=== PATIENT | female | born 1985 | race Caucasian/White ===

== ENCOUNTER 2020-12-13 18:23 | Inpatient (IN) ==
[2020-12-13] MEDS ORDERED: levETIRAcetam 1,500 MG in 0.9 % SODIUM CHLORIDE 100 ML IV STA (18:44)
[2020-12-13] MEDS ORDERED: SODIUM CHLORIDE 0.9% 500 ML IV SCH (18:45)
--- NOTE | 2020-12-13 18:54 | Emergency Department Note ---
Impression & Plan Collapse, Seizure-like activity, Acute head trauma, Facial contusion, Methamphetamine abuse ED Provider Note NAME: COOKIE BLACKBURN AGE: 35 SEX: F : 1985 ARRIVES VIA: Ambulance INFORMANT: [Patient][ems] ED PROVIDER(S): [Julian Varela MD] CHIEF COMPLAINT: Seizure HISTORY OF PRESENT ILLNESS: The patient is a 35-year-old female who [facility] She has been there for 2 weeks. She is there for methamphetamine abuse. Patient states that she has a history of stress-induced seizures. She has only ever been on Valium though for her seizures. Patient states her last seizure was in July of last year, about 4 months ago. Today, the patient had 2 seizure-like events. She did fall to the ground and injured her right face and neck. She is in a stiff cervical collar. The pain is moderate in severity. The patient states that she has been having headaches, she states that there has been no chest pain or shortness of breath, no cough or cold or congestion. No abdominal pain or vomiting or urinary complaints. The patient states that she does not remember the seizure events. As per EMS, the patient's seizure stopped when the IV was placed, no antiseizure medications were given in route. The patient BSG was 127. The patient did not bite her tongue, there was no urinary loss. REVIEW OF SYSTEMS: See HPI for pertinent positives and negatives. A total of ten systems were reviewed and were otherwise negative. PMHx/PSHx: See Below SOCIAL HISTORY: See Below. PHYSICAL EXAM: GENERAL: Patient is in no acute distress. HEENT: No acute trauma, normocephalic atraumatic, mucous membranes moist, no nasal congestion, no scleral icterus. NECK: No stridor. Stiff collar in place. LUNGS: Clear to auscultation bilaterally, no wheeze, no rhonchi, breath sounds equal. HEART: Without murmurs gallops or rubs, regular rate and rhythm. ABDOMEN: Soft, nontender, bowel sounds positive, no hernias, no peritonitis. EXTREMITIES: No cyanosis or edema, full range of motion of all the joints without pain or difficulty, no signs for acute trauma. NEUROLOGIC: Oriented x 3, no acute motor or sensory deficits, no focal weakness. SKIN: No rash, no jaundice, no diaphoresis. DIFFERENTIAL DIAGNOSIS: Epilepsy, infection, hypoglycemia, electrolyte abnormalities, cardiac sources, intracerebral event, trauma, overdose, neurologic event, syncope, as well as other pathologies. EMERGENCY DEPARTMENT COURSE/PROCEDURES: ECG: Indication was seizure. ECG shows a normal sinus rhythm with a rate of 76. There is no ST elevation, no PVCs. The QTc is 438. No old ECGs available for comparison. Continuous Cardiac Monitoring: An order was placed for continuous cardiac monitoring. The monitor shows a rate of 82 with normal sinus rhythm. Critical Care Note: I have personally spent 39 minutes of critical care time in the direct management of this patient. This includes bedside care, interpretation of diagnostic studies, and testing, discussion with consultants, patient, and family members, and other required patient management activities. This 39 minutes is in excess of all separately billable procedures. MEDICAL DECISION MAKING: There is no leukocytosis or concerning anemia. There is a normal platelet count. No significant electrolyte abnormality or kidney failure. No worrisome liver enzyme elevation. The patient appears to be in a euthyroid state. ECG showed a sinus rhythm, no acute ischemia. Cardiac enzyme testing x1 is not consistent with acute cardiac injury. Chest film did not show pneumonia or pneumothorax. Urinalysis does not show evidence for infection. Urine tox was negative. Brain CT shows no acute bleed or mass-effect. Facial CT shows no acu te fracture. C-spine CT shows no acute fracture. The patient received 500 cc of IV saline for hydration. She was given IV Keppra to prevent further seizure-like activity. She was given IV Tylenol for pain. The patient is currently resting comfortably. There has been no further seizure-like activity. She is currently oriented x3. The patient's stiff collar was removed. She can move her neck freely with minimal discomfort. The patient suffered a collapse today. She had 2 reported seizure-like events. None witnessed here in the ED though. I did speak with neurology. They recommended the continuation of the Keppra medication. Patient will need a seizure work-up including an MRI and EEG. Patient is not currently stable for discharge back to her rehab center. I spoke to the patient about her findings, I did speak with case management. The on-call hospitalist was consulted. Past Med/Surg History Medical History Drug abuse Seizure-like activity Social History Smoking Status: Current every day smoker Feels Safe at Home: Yes Results & Data (ED) Vital Signs Vital Signs - 24 hr 12/13/20 18:33 12/13/20 18:55 12/13/20 19:00 Temperature 36.9 C Temperature Source Oral Pulse Rate 82 Pulse Rate [Left Finger] 86 Pulse Rhythm [Left Finger] Pulse Strength [Left Finger] Respiratory Rate 20 20 Respiratory Effort / Characteristics Respiratory Depth Normal Respiratory Pattern Blood Pressure 122/96 Blood Pressure [Left Arm] 120/80 Blood Pressure Mean 104 Blood Pressure Mean [Left Arm] 93 Blood Pressure Position [Left Arm] Pulse Oximetry 98 98 98 Oxygen Delivery Method Room Air Room Air Sepsis Recent Fever Within 48 Hours No Sepsis New/Unexplained Change in Mental Status No Sepsis Action Taken by Nursing No Action Required 12/13/20 19:35 12/13/20 20:14 Temperature Temperature Source Pulse Rate Pulse Rate [Left Finger] 88 82 Pulse Rhythm [Left Finger] Regular Pulse Strength [Left Finger] Normal Respiratory Rate 16 20 Respiratory Effort / Characteristics Non-Labored Respiratory Depth Normal Respiratory Pattern Regular Blood Pressure Blood Pressure [Left Arm] 127/78 114/73 Blood Pressure Mean Blood Pressure Mean [Left Arm] 94 86 Blood Pressure Position [Left Arm] Lying Pulse Oximetry 95 Oxygen Delivery Method Room Air Sepsis Recent Fever Within 48 Hours Sepsis New/Unexplained Change in Mental Status Sepsis Action Taken by Correction Medications Current Medication List: was personally reviewed by me Laboratory Data Attestation: I reviewed the patient's lab results. Result diagrams: 12/13/20 18:50 12/13/20 18:50 Lab Results 12/13/20 12/13/20 12/13/20 Range/Units 18:30 18:30 18:50 WBC (4.8-10.8) K/uL RBC (4.2-5.4) M/uL Hgb (12.0-16.0) g/dL Hct (37-47) % MCV (80-100) fL MCH (25-34) pg MCHC (32-36) g/dL RDW Std Deviation (36.4-46.3) fL RDW Coeff of Jody (11.5-14.5) % Plt Count (130-400) K/uL MPV (7.4-10.4) fL Immature Gran % (Auto) % Neut % (Auto) % Lymph % (Auto) % [place] % (Auto) % Eos % (Auto) % Baso % (Auto) % Neut # (Auto) (1.4-6.5) K/uL Lymph # (Auto) (1.2-3.4) K/uL [place] # (Auto) (0.11-0.59) K/uL Eos # (Auto) (0-0.5) K/uL Baso # (Auto) (0-0.2) K/uL Immature Gran # (Auto) (0.00-0.02) K/uL Sodium 139 (136-145) mmol/L Potassium 4.1 (3.5-5.1) mmol/L Chloride 105 (98-107) mmol/L Carbon Dioxide 29 (21-32) mmol/L Anion Gap 5.0 (3-11) BUN 18 (7-18) mg/dl Creatinine 0.88 (0.6-1.2) mg/dl Est Cr Clr Drug Dosing 79.6 ml/min Est GFR ( Amer) 100.1 Est GFR (Non-Af Amer) 86.3 BUN/Creatinine Ratio 20.0 (10-20) Glucose 79 (70-99) mg/dl Calcium 9.3 (8.5-10.1) mg/dl Magnesium 2.1 (1.8-2.4) mg/dl Total Bilirubin 0.2 (0.2-1) mg/dl AST 12 L (15-37) U/L ALT 22 (12-78) U/L Alkaline Phosphatase 66 (45-117) U/L Troponin I < 0.015 (0-0.045) ng/ml Total Protein 7.3 (6.4-8.2) gm/dl Albumin 3.6 (3.4-5.0) gm/dl Globulin 3.7 (2.5-4.0) gm/dl Albumin/Globulin Ratio 1.0 (0.9-2) TSH 2.320 (0.300-4.500) uIu/ml Urine Color Yellow Urine Appearance Clear (Clear) Urine pH 6.0 (4.5-7.5) Ur Specific [place] 1.010 (1.000-1.030) Urine Protein Negative (Negative) Urine Glucose (UA) Negative (Negative) Urine Ketones Negative (Negative) Urine Blood Negative (Negative) Urine Nitrite Negative (Negative) Urine Bilirubin Negative (Negative) Urine Urobilinogen Negative (Negative) Ur Leukocyte Esterase Trace H (Negative) Urine WBC (Auto) 1-5 (0-5) /hpf Urine RBC (Auto) 0-4 (0-4) /hpf U Hyaline Cast (Auto) 0 (0-5) /lpf U Epithel Cells (Auto) >30 H (0-5) /lpf Urine Bacteria (Auto) Negative (Negative) Urine Opiates Screen Neg (Neg) Ur Methadone, Qual Neg (Neg) Urine Barbiturates Neg (Neg) Ur Phencyclidine (PCP) Neg (Neg) U Amphetamin/Meth Scrn Neg (Neg) MDMA (Ecstasy) Screen Neg (Neg) U Benzodiazepines Scrn Neg (Neg) Ur Cocaine Metabolite Neg (Neg) U Marijuana (THC) Screen Neg (Neg) 12/13/20 Range/Units 18:50 WBC 8.51 (4.8-10.8) K/uL RBC 4.50 (4.2-5.4) M/uL Hgb 14.3 (12.0-16.0) g/dL Hct 41.7 (37-47) % MCV 92.7 (80-100) fL MCH 31.8 (25-34) pg MCHC 34.3 (32-36) g/dL RDW Std Deviation 46.0 (36.4-46.3) fL RDW Coeff of Jody 13.6 (11.5-14.5) % Plt Count 215 (130-400) K/uL MPV 10.2 (7.4-10.4) fL Immature Gran % (Auto) 0.2 % Neut % (Auto) 47.4 % Lymph % (Auto) 42.7 % [place] % (Auto) 8.0 % Eos % (Auto) 1.5 % Baso % (Auto) 0.2 % Neut # (Auto) 4.03 (1.4-6.5) K/uL Lymph # (Auto) 3.63 H (1.2-3.4) K/uL [place] # (Auto) 0.68 H (0.11-0.59) K/uL Eos # (Auto) 0.13 (0-0.5) K/uL Baso # (Auto) 0.02 (0-0.2) K/uL Immature Gran # (Auto) 0.02 (0.00-0.02) K/uL Sodium (136-145) mmol/L Potassium (3.5-5.1) mmol/L Chloride (98-107) mmol/L Carbon Dioxide (21-32) mmol/L Anion Gap (3-11) BUN (7-18) mg/dl Creatinine (0.6-1.2) mg/dl Est Cr Clr Drug Dosing ml/min Est GFR ( Amer) Est GFR (Non-Af Amer) BUN/Creatinine Ratio (10-20) Glucose (70-99) mg/dl Calcium (8.5-10.1) mg/dl Magnesium (1.8-2.4) mg/dl Total Bilirubin (0.2-1) mg/dl AST (15-37) U/L ALT (12-78) U/L Alkaline Phosphatase (45-117) U/L Troponin I (0-0.045) ng/ml Total Protein (6.4-8.2) gm/dl Albumin (3.4-5.0) gm/dl Globulin (2.5-4.0) gm/dl Albumin/Globulin Ratio (0.9-2) TSH (0.300-4.500) uIu/ml Urine Color Urine Appearance (Clear) Urine pH (4.5-7.5) Ur Specific [place] (1.000-1.030) Urine Protein (Negative) Urine Glucose (UA) (Negative) Urine Ketones (Negative) Urine Blood (Negative) Urine Nitrite (Negative) Urine Bilirubin (Negative) Urine Urobilinogen (Negative) Ur Leukocyte Esterase (Negative) Urine WBC (Auto) (0-5) /hpf Urine RBC (Auto) (0-4) /hpf U Hyaline Cast (Auto) (0-5) /lpf U Epithel Cells (Auto) (0-5) /lpf Urine Bacteria (Auto) (Negative) Urine Opiates Screen (Neg) Ur Methadone, Qual (Neg) Urine Barbiturates (Neg) Ur Phencyclidine (PCP) (Neg) U Amphetamin/Meth Scrn (Neg) MDMA (Ecstasy) Screen (Neg) U Benzodiazepines Scrn (Neg) Ur Cocaine Metabolite (Neg) U Marijuana (THC) Screen (Neg) Administered Medications Discontinued Medications Acetaminophen (Acetaminophen 1000 Mg/100 Ml Iv) 1,000 mg IV NOW STA Stop: 12/13/20 19:02 Last Admin: 12/13/20 19:39 Dose: 1,000 mg Documented by: [id number] Levetiracetam 1,500 mg/ Sodium (Chloride) 115 mls @ 440 mls/hr IV NOW STA Stop: 12/13/20 18:58 Last Infusion: 12/13/20 19:21 Dose: 0 mls/hr Documented by: [id number] Admin: 12/13/20 19:05 Dose: 440 mls/hr Documented by: [id number] Sodium Chloride (Nss) 500 mls @ 999 mls/hr IV .Q31M KORY Stop: 12/13/20 19:15 Last Infusion: 12/13/20 19:36 Dose: 0 mls/hr Documented by: [id number] Admin: 12/13/20 19:05 Dose: 999 mls/hr Documented by: [id number] Imaging Data Radiologist's Impression: XR chest 1V portable HISTORY: 35 years-old Female weakness acute weakness COMPARISON: CT cervical spine of same day TECHNIQUE: Portable AP view of the chest FINDINGS: Cardiomediastinal and hilar silhouettes are within normal limits. No pneumothorax, pleural effusion, airspace consolidation or overt pulmonary edema. Bones of the chest appear grossly intact. IMPRESSION: No acute process. CT head/brain wo con CLINICAL HISTORY: 35 years-old Female with trauma. Acute head, neck and facial trauma TECHNIQUE: Multiple axial CT images of the head were obtained without contrast. A dose lowering technique was utilized adhering to the principles of ALARA. COMPARISON: CT maxillofacial and cervical spine studies of same day. FINDINGS: No acute intracranial hemorrhage, midline shift, intracranial mass, hydr ocephalus, territorial ischemia or abnormal extra-axial collection. The calvarium is intact. The paranasal sinuses, mastoid air cells, and middle ear cavities are clear. IMPRESSION: No acute intracranial abnormality or calvarial fracture. CT cervical spine wo con CLINICAL HISTORY: 35 years-old Female with pain, trauma. Acute neck trauma COMPARISON: CT head and maxillofacial studies of same day TECHNIQUE: Multiple axial CT images of the cervical spine were obtained without contrast. A dose lowering technique was utilized adhering to the principles of ALARA. FINDINGS: Reversal the normal cervical lordosis with kyphosis centered at C5. Mild intervertebral disc space narrowing with uncovertebral spurring and small posterior disc osteophyte complex at C5-C6. No acute fracture or subluxation. Evaluation of the central canal and neuroforamina is better assessed by MRI. No high-grade central canal or foraminal narrowing identified. No pneumothorax. No prevertebral edema. IMPRESSION: No acute cervical spine fracture or subluxation. CT facial bones wo con CLINICAL HISTORY: 35 years-old Female presenting with trauma, pain. Acute posttraumatic facial pain COMPARISON STUDY: CT head and cervical spine studies of same day TECHNIQUE: High-resolution CT scan of the facial bones is performed. Images are reviewed in the axial, sagittal, and coronal planes. IV contrast was not admini stered for this examination. A dose lowering technique was utilized adhering to the principles of ALARA. CT DOSE: 810.91 mGy.cm FINDINGS: The bilateral globes and orbits are unremarkable. Streak artifact from dental amalgam hardware. Unremarkable subcutaneous tissues. No opaque foreign body or large soft tissue hematoma or contusion. The mastoid air cells and middle ear cavities are clear. Chronic appearing volume loss with complete opacification of the right maxillary sinus. Moderate mucosal thickening of the nasal turbinates. Leftward bowing and spurring of the nasal septum. Hypoplastic frontal sinuses with mild mucosal thickening of the ethmoid air cells and minimal polypoid because of thickening of the anterior sphenoid sinuses. No acute facial bone fracture. Anterior subluxation of the bilateral temporal mandibular joints with moderate degeneration. IMPRESSION: No acute facial bone fracture. Head Trauma GCS Score: 15 Discharge Plan Visit Data Chief Complaint: Seizure Stated Complaint: SEIZURES ED Provider: Julian Varela Discharge Problem: Collapse, Seizure-like activity, Acute head trauma, Facial contusion, Methamphetamine abuse Patient Disposition: Admitted As Inpatient Condition: Fair Forms Stand Alone Forms: [facility] Referrals Referrals: [facility] [Primary Care Provider] - Discharge Problem: Acute head trauma Qualifiers: Encounter type: initial encounter Qualified Code(s): S09.90XA - Unspecified injury of head, initial encounter Facial contusion Qualifiers: Encounter type: initial encounter Qualified Code(s): S00.83XA - Contusion of other part of head, initial encounter
[2020-12-13] MEDS ORDERED: ACETAMINOPHEN 1000 MG/100 ML IV IV STA (19:01)
[2020-12-13 19:02] LABS: Basophils # (auto) 0.02 K/uL (0-0.2); Basophils % (auto) 0.2 %; Eosinophils # (auto) 0.13 K/uL (0-0.5); Eosinophils % (auto) 1.5 %; Hematocrit (blood only) 41.7 % (37-47); Hemoglobin 14.3 g/dL (12.0-16.0); Immature Granulocytes # (auto) 0.02 K/uL (0.00-0.02); Immature Granulocytes % (auto) 0.2 %; Lymphocytes # (auto) 3.63 K/uL (1.2-3.4); Lymphocytes % (auto) 42.7 %; Mean Corpuscular Hemoglobin 31.8 pg (25-34); Mean Corpuscular Hgb Conc 34.3 g/dL (32-36); Mean Corpuscular Volume 92.7 fL (80-100); Mean Platelet Volume 10.2 fL (7.4-10.4); Monocytes # (auto) 0.68 K/uL (0.11-0.59); Neutrophils # (auto) 4.03 K/uL (1.4-6.5); Neutrophils % (auto) 47.4 %; Platelet Count 215 K/uL (130-400); RDW Coefficient of Variation 13.6 % (11.5-14.5); White Blood Count 8.51 K/uL (4.8-10.8)
[2020-12-13 19:05] LABS: Appearance Urine Clear (Clear); Bacteria Urine Automated Negative (Negative); Bilirubin Urine Negative (Negative); Blood Urine Negative (Negative); Cast Urine Automated 0 /lpf (0-5); Color Urine Yellow; Epithelial Cell Urine Auto >30 /lpf (0-5); Glucose Urine UA Negative (Negative); Ketones Urine Negative (Negative); Leukocyte Esterase Urine Trace (Negative); Nitrite Urine Negative (Negative); Protein Urine Negative (Negative); RBC Urine Automated 0-4 /hpf (0-4); Urobilinogen Urine Negative (Negative)
[2020-12-13 19:18] LABS: Alanine Aminotransferase 22 U/L (12-78); Albumin Level 3.6 gm/dl (3.4-5.0); Aspartate Aminotransferase 12 U/L (15-37); Blood Urea Nitrogen 18 mg/dl (7-18); Calcium 9.3 mg/dl (8.5-10.1); Carbon Dioxide 29 mmol/L (21-32); Chloride 105 mmol/L (98-107); Creatinine Clr Calc Pharmacy 79.6 ml/min; Est GFR (African American) 100.1; Est GFR (Non-African American) 86.3; Glucose 79 mg/dl (70-99); Magnesium 2.1 mg/dl (1.8-2.4); Potassium 4.1 mmol/L (3.5-5.1); Sodium 139 mmol/L (136-145)
[2020-12-13 19:25] LABS: Amphetamines+Metham, Urine Neg (Neg); Barbiturates, Urine Neg (Neg); Benzodiazepine, Urine Neg (Neg); Cocaine, Urine Neg (Neg); MDMA (Ecstacy), Urine Neg (Neg); Methadone, Urine Neg (Neg); Opiate, Urine Neg (Neg); Phencyclidine, Urine Neg (Neg)
[2020-12-13 19:29] LABS: Alkaline Phosphatase 66 U/L (45-117); Bilirubin,Total 0.2 mg/dl (0.2-1); Globulin 3.7 gm/dl (2.5-4.0); Total Protein 7.3 gm/dl (6.4-8.2); Troponin I < 0.015 ng/ml (0-0.045)
--- NOTE | 2020-12-13 19:57 | CT Scan Report ---
CT head/brain wo con CLINICAL HISTORY: 35 years-old Female with trauma. Acute head, neck and facial trauma TECHNIQUE: Multiple axial CT images of the head were obtained without contrast. A dose lowering tech nique was utilized adhering to the principles of ALARA. COMPARISON: CT maxillofacial and cervical spine studies of same day. FINDINGS: No acute intracranial hemorrhage, midline shift, intracranial mass, hydrocephalus, territorial ischem ia or abnormal extra-axial collection. The calvarium is intact. The paranasal sinuses, mastoid air cells, and middle ear cavities are clear . IMPRESSION: No acute intracranial abnormality or calvarial fracture. ACT 112: Negative or not required by law. The above report was generated using voice recognition software. It may contain grammatical, syntax o r spelling errors. Electronically signed by: Savage Harp M.D. 12/13/2020 7:55 PM
--- NOTE | 2020-12-13 19:57 | XRay Report ---
XR chest 1V portable HISTORY: 35 years-old Female weakness acute weakness COMPARISON: CT cervical spine of same day TECHNIQUE: Portable AP view of the chest FINDINGS: Cardiomediastinal and hilar silhouettes are within normal limits. No pneumothorax, pleural effusion, airspace consolidation or overt pulmonary edema. Bones of the chest appear grossly intact. IMPRESSION: No acute process. ACT 112: Negative or not required by law. The above report was generated using voice recognition software. It may contain grammatical, syntax o r spelling errors. Electronically signed by: Savage Harp M.D. 12/13/2020 7:56 PM
--- NOTE | 2020-12-13 20:00 | CT Scan Report ---
CT cervical spine wo con CLINICAL HISTORY: 35 years-old Female with pain, trauma. Acute neck trauma COMPARISON: CT head and maxillofacial studies of same day TECHNIQUE: Multiple axial CT images of the cervical spine were obtained without contrast. A dose low ering technique was utilized adhering to the principles of ALARA. FINDINGS: Reversal the normal cervical lordosis with kyphosis centered at C5. Mild intervertebral disc space na rrowing with uncovertebral spurring and small posterior disc osteophyte complex at C5-C6. No acute fr acture or subluxation. Evaluation of the central canal and neuroforamina is better assessed by MRI. N o high-grade central canal or foraminal narrowing identified. No pneumothorax. No prevertebral edema. IMPRESSION: No acute cervical spine fracture or subluxation. ACT 112: Negative or not required by law. The above report was generated using voice recognition software. It may contain grammatical, syntax o r spelling errors. Electronically signed by: Savage Harp M.D. 12/13/2020 7:59 PM
--- NOTE | 2020-12-13 20:06 | CT Scan Report ---
CT facial bones wo con CLINICAL HISTORY: 35 years-old Female presenting with trauma, pain. Acute posttraumatic facial pain COMPARISON STUDY: CT head and cervical spine studies of same day TECHNIQUE: High-resolution CT scan of the facial bones is performed. Images are reviewed in the axia l, sagittal, and coronal planes. IV contrast was not administered for this examination. A dose lower ing technique was utilized adhering to the principles of ALARA. CT DOSE: 810.91 mGy.cm FINDINGS: The bilateral globes and orbits are unremarkable. Streak artifact from dental amalgam hardware. Unrem arkable subcutaneous tissues. No opaque foreign body or large soft tissue hematoma or contusion. The mastoid air cells and middle ear cavities are clear. Chronic appearing volume loss with complete opacification of the right maxillary sinus. Moderate mucosal thickening of the nasal turbinates. Left chen bowing and spurring of the nasal septum. Hypoplastic frontal sinuses with mild mucosal thickenin g of the ethmoid air cells and minimal polypoid because of thickening of the anterior sphenoid sinuse s. No acute facial bone fracture. Anterior subluxation of the bilateral temporal mandibular joints wi th moderate degeneration. IMPRESSION: No acute facial bone fracture. ACT 112: Negative or not required by law. The above report was generated using voice recognition software. It may contain grammatical, syntax o r spelling errors. Electronically signed by: Savage Harp M.D. 12/13/2020 8:04 PM
[2020-12-13 20:33] LABS: Pregnancy Test, Serum Negative (Negative)
--- NOTE | 2020-12-13 20:52 | History & Physical Report ---
Date of Service December 13, 2020 Assessment & Plan (1) Seizure-like activity: Michaela Berg is a 35 y/o F w/ hx of stress-induced seizure-like episodes, PTSD, bipolar disorder, substance abuse (snorting meth and heroin, denies hx IV drug use), and glaucoma who presents from [facility] ([place]) for 2 episodes of seizure-like at 1700 12/13/20. Stable. stress-induced seizure-like activity - x2 episodes prior to admission, 5-6 second duration and 20 second duration, respectively - seizure vs pseudoseizure. also consider pseudotumor cerebri - symptoms correlate w/ and seem precipitated by stressors, similar to prior episodes - hx of similar episodes since childhood - per patient, no recent medications, off of Keppra since childhood - ED provided 1.5g Keppra IV and 500 mL NSS IVF bolus. - admission neuro exam reassuring. no focal neuro deficits or altered mental status - head CT neg for bleed or midline shift - no leukocytosis and UDS negative. CMP, TSH, tropx1 neg. lower concern for substance overdose, cardiac, or infectious etiology at this time - neuro consult placed (Dr. Monterroso) - seizure precautions ordered - MRI and EEG - telemetry and cardiac monitoring - may consider funduscopic eye exam given hx of glaucoma and differential of pseudotumor cerebri - no further Keppra for now. ordered PRN lorazepam 1 mg IV PRN for further seizure activity - CBC, CMP, CK (r/o rhabdomyolysis from sz activity) in AM - no JACOBO or withdrawal protocol ordered as patient has been at rehab for 2 wks prior to admission during which she did not require any withdrawal type medications. pt denies hx of etoh abuse. FEN/GI: regular diet (MRI will be noncon). no mIVF dvt ppx: SCDs (pt is low risk) code status: full code dispo: med/surg w/ tele. [facility]po [facility] back to [facility], waiting on seizure workup / observation Present on Admission?: Yes (2) Acute head trauma: - 2/2 seizure-like episode above, collapsed/fell from standing position - no LOC or or concussion type symptoms from fall - no focal neuro deficits - CT head, facial bones, and c-spine were negative. details at results section - follow clinically, patient is stable Present on Admission?: Yes (3) Methamphetamine abuse: (4) Bipolar 2 disorder: - continue home abilify 15 mg qhs - continue home buspar 15 mg PO daily - holding home latuda 20 mg PO qhs because per patient, had not been receiving while at rehab facility for past 2 weeks 2/2 supply issue and has been receiving abilify and buspar in its place Present on Admission?: Yes (5) Anxiety and depression: - stable, continue home Prozac 20 mg PO daily Present on Admission?: Yes (6) Glaucoma: - continue home latanoprost 0.005% 1 drop in each eye qhs - consider funduscopic exam as per above Present on Admission?: Yes (7) Asthma, mild intermittent, well-controlled: - home combivent respimat 20mcg/100mcg 2 puffs BID PRN not on formulary - ordered albuterol inhaler 2 puffx q6h prn Present on Admission?: Yes (8) Encounter for screening laboratory testing for COVID-19 virus in asymptomatic patient: - 12/13/20 covid RNA, NAAT neg History of Present Illness Michaela Berg is a 35 y/o F w/ hx of meth and heroin abuse (snorting only, no IV. in rehab), "stress-induced seizure-like activity, not on antiepileptics for years), PTSD, bipolar II disorder who presents from [facility] (rehab at [place]) (patient has stayed there for 2 wks now) today for 2 episodes of seizure-like activity. Last used methadone on 12/01 (snorting, denies hx of IV drug abuse). 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 She had a 5-6 episode of reported tonic-clonic activity (w/o tongue biting) followed by a 20 second episode (uncertain how far apart). She fell from standing position during the episode and hit her head/face on the right side. No LOC from the fall or active bleeding noted. Patient has had frontal headache and bilateral constant eye discomfort today x 5 hours. After the seizure-like episodes, which she does not remember the details of the actual episodes (believes she was not responsive), she blurry vision that resolved after 5 minutes. Patient reportedly may have had a 3rd episode of seizure-like activity, but she is unsure of this and it was unclear per records review. + fatigue that is ongoing. Patient has hx of glaucoma w/ worsening eye discomfort prior to admission and states that [facility] rehab was planning to send her for evaluation at ophthalmology today. She believes pain of the frontal headache, new for her, starts from the eyes. Last episode of stress-induced seizure-like activity was in 07/2020. Patient states that she has had these episodes intermittently since the age of 14 and had been evaluated in the past and had been on Keppra, discontinued in late childhood. Per patient, past EEGs did not capture seizure activity. In recent years, she would occasionally get these episodes when especially stressed, but would let them subside at home w/o seeking medical care. No fever, chills, chest pain, palpitations, SOB, abdominal pain, constipation, diarrhea, urinary symptoms, focal weakness, or new numbness or tingling. Denies family hx of seizures. EMS vitals were stable. 150/80. 100% on room air. BSG 127. ED course: neg ecg, neg urine drug screen, head/neck imaging. 1500 mg IV Keppra administered, spoke w/ Dr. Monterroso Neurology Recent substance use hx: heroin (snorted, last used ~11/18/20). marijuana (12/01/ 1). etoh 1-2 beers prior to rehab. tobacco 2-3 cigarettes/day, last used today Primary Care Provider: [facility] Allergies Allergy/AdvReac Type Severity Reaction Status Date / Time adhesive Allergy Unknown Unknown Verified 12/13/20 20:38 bee venom protein (honey bee) Allergy Unknown Unknown Verified 12/13/20 20:38 lamotrigine [From Lamictal] Allergy Unknown Unknown Verified 12/13/20 20:38 [place] Allergy Unknown Unknown Uncoded 12/13/20 20:38 Home Medications Medication Instructions Recorded Confirmed Type Latuda 20 mg PO HS 12/13/20 12/13/20 History acetaminophen 650 mg PO QID PRN 12/13/20 12/13/20 History aripiprazole [Abilify] 15 mg PO HS 12/13/20 12/13/20 History buspirone 15 mg PO TID 12/13/20 12/13/20 History diphenhydramine HCl [Benadryl] 25 - 50 mg PO Q6H PRN 12/13/20 12/13/20 History fluoxetine [Prozac] 20 mg PO DAILY 12/13/20 12/13/20 History gabapentin 300 mg PO QID 12/13/20 12/13/20 History ibuprofen 600 mg PO QID PRN 12/13/20 12/13/20 History latanoprost 1 drp OPB HS 12/13/20 12/13/20 History melatonin 5 - 10 mg PO HS PRN 12/13/20 12/13/20 History multivitamin 1 tab PO QAM 12/13/20 12/13/20 History ondansetron HCl 8 mg PO TID PRN 12/13/20 12/13/20 History Past Med/Surg History Medical History Drug abuse meth, last snorted 12/01/20. heroin, last snorted ~11/18/20. marijuana, last smoked 12/01/20. Seizure-like activity Family History Other Bipolar disorder Diabetes Social History Smoking Status: Current every day smoker Cigarettes Per Day: 3; Hx Alcohol Use: No Hx Substance Use: Yes Last Used Substance: Days (ago) Last Used Substance Other:: 12/01/20 Preferred Language: [place] Communication Ability: Effective Assembly Line Inspector Required: No Beliefs That Will Affect Care: None Current Living Situation: Rehab Feels Safe at Home: Yes Assistive Devices: None Review of Systems Review of Systems: All systems reviewed & are unremarkable except as noted in HPI & below Genitourinary: denies groin numbness/tingling Neuro: + mild paresthesias of RUE, chronic Physical Exam Physical Exam: Vitals reviewed. afebrile and satting well on room air. General: A&Ox4 to person, place, time, and situation. NAD. Cooperative. Drowsy, falling asleep during interview, but easily arousable. No speech deficits. HEENT: Grossly traumatic, normocephalic. No Wills's sign or raccoon eyes. No C spine TTP. Full neck range of motion. EOMI. No tongue bite forrester Pulm: CTAB. -wheezes, -rales, -rhonchi. No respiratory distress. Cardiac: RRR, -mrg. Radial pulses intact and symmetrical. Abdominal: Nontender, nondistended, soft. Neuro: CN II-XII intact. 5+/5 strength of bilateral upper and lower extremities. No dysdiadochokinesia. Results & Data Results & Data ([facility]) Vital Signs (Past 12 Hours) Vital Signs Temp Pulse Pulse Resp BP BP Pulse Ox 12/13/20 20:14 82 20 114/73 95 12/13/20 19:35 88 16 127/78 12/13/20 19:00 86 20 120/80 98 12/13/20 18:55 98 12/13/20 18:33 36.9 C 82 20 122/96 98 Diagnostic Findings 12/13/20 cxr: no acute process 12/13/20 CT head/brain w/o con: no acute intracranial hemorrhage, midline shift, intracranial mass, hydrocephalus, or territorial ischemia noted. no calvarial fracture. 12/13/20 CT facial bones w/o con: no acute fracture 12/13/20 CT cervical spine w/o con: no acute fracture or subluxation ECG Additional Comments: per my (Dr. Castro PGY1 resident) interpretation, NSR 76 bpm. Normal axis and intervals. No ST/T changes. Code Status & VTE Plan Code Status full code VTE Prophylaxis Plan VTE Prophylaxis will be ordered: Yes Supervising Physician Co-Signing Physician Notes Attending addendum: I have physically seen this patient, have supervised the medical residents activities, and agree with the H&P unless as otherwise noted. Assessment and Plan: Seizure-like activity- Order to monitored bed to assess for possible arrhythmia Patient with 2 unobserved episodes prior to arrival to the ED. Differential includes seizure versus pseudoseizure Neurology instructed emergency department to give Keppra 1500 mg IV as a single dose, and will continue [address] head without acute findings. order MRI brain seizure protocol Order EEG Seizure precautions Consult neurology Bipolar disorder/anxiety and depression- Continue Abilify 15 mg nightly, BuSpar 15 mg p.o. daily and Prozac 20 mg p.o. daily. Hold Latuda for now Remaining orders and notations as noted Resident Activity Tracking Resident Involvement: Resident Care Provided Care Provided: Adult Hospital Medicine (1) Acute head trauma Encounter type: initial encounter Qualified Code(s): S09.90XA - Unspecified injury of head, initial encounter
[2020-12-13] MEDS ORDERED: ACETAMINOPHEN 325 MG TAB PO PRN (22:38)
[2020-12-13] MEDS ORDERED: ONDANSETRON INJ 2 MG/ML 2 ML VIAL IV PRN (22:38)
[2020-12-13] MEDS ORDERED: POLYETHYLENE (MIRALAX) 17 GM PACK PO PRN (22:38)
[2020-12-13] MEDS ORDERED: LORazepam 1 MG/2 ML VIAL IV PRN (22:57)
[2020-12-13] MEDS ORDERED: ALBUTEROL HFA 8 GM INHALER INH PRN (23:06)
[2020-12-14 06:05] LABS: Basophils # (auto) 0.03 K/uL (0-0.2); Basophils % (auto) 0.5 %; Eosinophils # (auto) 0.11 K/uL (0-0.5); Eosinophils % (auto) 1.9 %; Hematocrit (blood only) 42.1 % (37-47); Hemoglobin 13.8 g/dL (12.0-16.0); Immature Granulocytes # (auto) 0.02 K/uL (0.00-0.02); Immature Granulocytes % (auto) 0.4 %; Lymphocytes # (auto) 2.68 K/uL (1.2-3.4); Lymphocytes % (auto) 47.3 %; Mean Corpuscular Hemoglobin 30.7 pg (25-34); Mean Corpuscular Hgb Conc 32.8 g/dL (32-36); Mean Corpuscular Volume 93.6 fL (80-100); Mean Platelet Volume 10.2 fL (7.4-10.4); Monocytes # (auto) 0.46 K/uL (0.11-0.59); Monocytes % (auto) 8.1 %; Neutrophils # (auto) 2.36 K/uL (1.4-6.5); Neutrophils % (auto) 41.8 %; Platelet Count 194 K/uL (130-400); RDW Coefficient of Variation 13.7 % (11.5-14.5); RDW Standard Deviation 47.4 fL (36.4-46.3); White Blood Count 5.66 K/uL (4.8-10.8)
[2020-12-14 06:32] LABS: Albumin Level 3.2 gm/dl (3.4-5.0); BUN Creatinine Ratio 19.2 (10-20); Calcium 9.1 mg/dl (8.5-10.1); Creatinine Clr Calc Pharmacy 80.8 ml/min; Potassium 4.2 mmol/L (3.5-5.1)
[2020-12-14 06:35] LABS: Albumin Globulin Ratio 0.9 (0.9-2); Bilirubin,Total 0.3 mg/dl (0.2-1); Globulin 3.4 gm/dl (2.5-4.0); Total Protein 6.6 gm/dl (6.4-8.2)
--- NOTE | 2020-12-14 07:29 | Magnetic Resonance Report ---
MRI OF THE BRAIN WITHOUT CONTRAST CLINICAL HISTORY: reported seizure-like activity COMPARISON STUDY: Noncontrast head CT dated 12/13/2020 FINDINGS: Sagittal T1, axial diffusion, proton density and T2 weighted axial, coronal FLAIR, and axial T1-weigh fermin images were acquired. No intra or extra-axial mass lesions are visualized Axial diffusion-weighted images reveal no evidence of acute or subacute infarction. There is no evidence of ventricular dilatation. Proton density T2-weighted and FLAIR images reveal a few scattered nonspecific foci of increased T2 a nd FLAIR signal within the white matter. There are no abnormal flow voids. The hippocampal formations appear symmetric. Inflammatory changes are present within the right maxillary sinus. IMPRESSION: 1. No evidence of acute or subacute infarction 2. No evidence of intracranial mass in this noncontrast study 3. There are a few scattered nonspecific foci of increased T2 and FLAIR signal within the white matte r. ACT 112: Negative or not required by law. Electronically signed by: Rosendo Menezes M.D. 12/14/2020 7:27 AM
[2020-12-14] MEDS: busPIRone 15 MG TAB PO SCH ×2 (08:09→13:41)
[2020-12-14] MEDS: GABAPENTIN 300 MG CAP PO SCH ×3 (08:09→16:20)
--- NOTE | 2020-12-14 08:24 | Electroencephalogram ---
EEG Procedure Note Date of Service December 14, 2020 Start / End Times Start Time: 5:56 AM End Time: 6:16 AM Referring Physician Matthew Ziegler MD History Seizure-like activity Home Medication List Medication Instructions Recorded Confirmed Type acetaminophen 650 mg PO QID PRN 12/13/20 12/13/20 History aripiprazole [Abilify] 15 mg PO HS 12/13/20 12/13/20 History buspirone [BuSpar] 15 mg PO TID 12/13/20 12/13/20 History diphenhydramine HCl [Benadryl] 25 - 50 mg PO Q6H PRN 12/13/20 12/13/20 History fluoxetine [Prozac] 20 mg PO DAILY 12/13/20 12/13/20 History gabapentin 300 mg PO QID 12/13/20 12/13/20 History ibuprofen 600 mg PO QID PRN 12/13/20 12/13/20 History latanoprost 1 drp OPB 12/13/20 12/13/20 History lurasidone [Latuda] 20 mg PO HS 12/13/20 12/13/20 History melatonin 5 - 10 mg PO HS PRN 12/13/20 12/13/20 History multivitamin 1 tab PO QAM 12/13/20 12/13/20 History ondansetron HCl [Zofran] 8 mg PO TID PRN 12/13/20 12/13/20 History Inpatient Medication List Buspirone HCl (Buspirone 15 Mg Tab) 15 mg PO TID [facility] Stop: 01/13/21 08:59 Last Admin: 12/14/20 08:09 Dose: 15 mg Documented by: [id number] Fluoxetine HCl (Fluoxetine Hcl 20 Mg Cap) 20 mg PO DAILY [facility] Stop: 01/13/21 08:59 Last Admin: 12/14/20 08:09 Dose: 20 mg Documented by: [id number] Gabapentin (Gabapentin 300 Mg Cap) 300 mg PO QID [facility] Stop: 01/13/21 08:59 Last Admin: 12/14/20 08:09 Dose: 300 mg Documented by: [id number] Discontinued Medications Acetaminophen (Acetaminophen 1000 Mg/100 Ml Iv) 1,000 mg IV NOW STA Stop: 12/13/20 19:02 Last Admin: 12/13/20 19:39 Dose: 1,000 mg Documented by: [id number] Levetiracetam 1,500 mg/ Sodium (Chloride) 115 mls @ 440 mls/hr IV NOW STA Stop: 12/13/20 18:58 Last Infusion: 12/13/20 19:21 Dose: 0 mls/hr Documented by: [id number] Admin: 12/13/20 19:05 Dose: 440 mls/hr Documented by: [id number] Sodium Chloride (Nss) 500 mls @ 999 mls/hr IV .Q31M [facility] Stop: 12/13/20 19:15 Last Infusion: 12/13/20 19:36 Dose: 0 mls/hr Documented by: [id number] Admin: 12/13/20 19:05 Dose: 999 mls/hr Documented by: [id number] Description This is a 21 electrode EEG with a single channel dedicated to limited EKG. The electrodes were placed in accordance with the International 10-20 system. The background rhythm consists of a mix of 10 Hz alpha and 6 Hz theta rhythm. Photic stimulation is unremarkable. Hyperventilation was not performed. There are intermittent vertex waves and sleep spindles. There is no focal or lateralized slowing. No epileptiform abnormalities observed. Interpretation This is a normal-appearing awake, sleepy EEG. A normal EEG does not completely exclude a diagnosis of epilepsy. Further clinical correlation may be needed. [facility] EEG Procedure Codes Indication for Procedure (1) Seizure-like activity: Neurology Neurology: [id number] EEG include record awake & sleepy
--- NOTE | 2020-12-14 08:32 | Neurology Consultation ---
Date of Consultation December 14, 2020 Assessment & Plan (1) Seizure-like activity: Seizure-like episode occurring in the context of psychological stressors while at [facility] in [place] for substance abuse including methamphetamine and heroin. History also notable for posttraumatic stress disorder and bipolar disorder. No supportive evidence of epilepsy on recently completed EEG or brain MRI. Patient is neurologically intact. I would not recommend treatment for epilepsy with an anticonvulsant drug at this time. However, if patient were to have additional seizure-like episodes would need to consider referring this patient for inpatient video EEG monitoring. Would also consider treatment with a different anticonvulsant in that context as well, possibly topiramate. I have no further immediate recommendations. She will need to continue to follow with her psychiatrist for ongoing management of bipolar disorder and posttraumatic stress disorder. History of Present Illness Reason for Consultation: Seizure-like activity Requesting Physician: Toney Castro MD Attending Physician: Davin Berger MD History of Present Illness The patient is a 35-year-old female with a history of stress-induced seizures beginning at age 14, posttraumatic stress disorder, bipolar disorder, and substance abuse, methamphetamine and heroin, who presented to the emergency department last night from [facility] rehab in [place] for further evaluation and management of multiple seizure-like episodes. The admission record indicates that the patient had 2 seizure-like episodes characterized by generalized tonic-clonic activity lasting 5 seconds and 20 seconds respectively. She did have a fall to the ground with 1 of these episodes and injured her right face and neck. She was given 1.5 g of Keppra IV in the emergency department. Imaging including a CT of the head, face, cervical spine, and brain MRI are unremarkable. I did review the images pertaining to this patient's brain MRI. There are a few nonspecific foci of increased T2/flair signal within the cerebral white matter. No other significant abnormalities. Hippocampal formations symmetrical. No evidence of mesial temporal sclerosis. A urine tox screen is negative. An EEG completed this morning was negative for epileptiform abnormalities. The patient indicates that she feels fine this morning. She reports that she had been prescribed Keppra in the past for her seizures although this medication was not helpful. She indicates that her seizures are "stress-induced." Her recent seizure occurred in the context of psychological distress related to counseling as above. She denies any specific neurological symptoms this morning such as headache, vision disturbance, difficulty concentrating, focal weakness, or difficulty walking. Allergies Allergy/AdvReac Type Severity Reaction Status Date / Time adhesive Allergy Unknown Unknown Verified 12/13/20 20:38 bee venom protein (honey bee) Allergy Unknown Unknown Verified 12/13/20 20:38 lamotrigine [From Lamictal] Allergy Unknown Unknown Verified 12/13/20 20:38 [place] Allergy Unknown Unknown Uncoded 12/13/20 20:38 Home Medications Medication Instructions Recorded Confirmed Type acetaminophen 650 mg PO QID PRN 12/13/20 12/13/20 History aripiprazole [Abilify] 15 mg PO HS 12/13/20 12/13/20 History buspirone [BuSpar] 15 mg PO TID 12/13/20 12/13/20 History diphenhydramine HCl [Benadryl] 25 - 50 mg PO Q6H PRN 12/13/20 12/13/20 History fluoxetine [Prozac] 20 mg PO DAILY 12/13/20 12/13/20 History gabapentin 300 mg PO QID 12/13/20 12/13/20 History ibuprofen 600 mg PO QID PRN 12/13/20 12/13/20 History latanoprost 1 drp OPB HS 12/13/20 12/13/20 History lurasidone [Latuda] 20 mg PO HS 12/13/20 12/13/20 History melatonin 5 - 10 mg PO HS PRN 12/13/20 12/13/20 History multivitamin 1 tab PO QAM 12/13/20 12/13/20 History ondansetron HCl [Zofran] 8 mg PO TID PRN 12/13/20 12/13/20 History Patient History Medical History Drug abuse meth, last snorted 12/01/20. heroin, last snorted ~11/18/20. marijuana, last smoked 12/01/20. Seizure-like activity Family History Other Bipolar disorder Diabetes Social History Smoking Status: Current every day smoker Cigarettes Per Day: 3; Hx Alcohol Use: No Hx Substance Use: Yes Last Used Substance: Days (ago) Last Used Substance Other:: 12/01/20 Preferred Language: Q[place] Communication Ability: Effective Insurance Sales Supervisor Required: No Beliefs That Will Affect Care: None Current Living Situation: Rehab Feels Safe at Home: Yes Safety Concerns: Feels Safe At This Time Assistive Devices: None Exam (Neuro) Physical Exam: Patient does not display any deficits of mental status, cranial nerve function, or motor or sensory function. I evaluated her while she was lying in bed. She appeared quite comfortable. Attention normal. No deficits of speech or language comprehension. No abnormal movements observed. Results & Data ([facility]) Vital Signs (Past 12 Hours) Vital Signs Temp Pulse Pulse Pulse Resp BP BP 12/14/20 07:23 37.0 C 77 16 105/66 12/14/20 03:27 36.8 C 74 20 107/67 12/14/20 00:11 85 12/13/20 22:14 36.8 C 77 16 106/70 12/13/20 21:30 83 18 113/72 Pulse Ox 12/14/20 07:23 97 12/14/20 03:27 97 12/14/20 00:11 12/13/20 22:14 96 12/13/20 21:30 96 PG Care Time/CCT Total # of Minutes Spent Total Time Spent with Patient: Total time spent is greater than 50% in coordination of care (as documented) at patient's floor/unit and/or counseling patient: 70 minutes Coding Level of Care Code 74572 Initial Inpt Care Lvl 3 Diagnoses Seizure-like activity R56.9
[2020-12-14] MEDS ORDERED: FLUoxetine HCL 20 MG CAP PO SCH (09:00)
--- NOTE | 2020-12-14 09:55 | Electrocardiogram Report ---
Test Reason : Blood Pressure : / mmHG Vent. Rate : 076 BPM Atrial Rate : 076 BPM P-R Int : 166 ms QRS Dur : 084 ms QT Int : 390 ms P-R-T Axes : 036 065 032 degrees QTc Int : 438 ms Normal sinus rhythm Normal ECG No previous ECGs available Confirmed by Morales Garcia ([id number]) on 12/14/2020 9:55:39 AM Referred By: Michael Harrison Confirmed By:Joey Garcia
--- NOTE | 2020-12-14 10:01 | Hospitalist Progress Note ---
Date of Service December 14, 2020 Assessment & Plan (1) Seizure-like activity: Michaela Berg is a 35 y/o F w/ hx of stress-induced seizure-like episodes, PTSD, bipolar disorder, substance abuse (snorting meth and heroin, denies hx IV drug use), and glaucoma who presents from [facility] ([place]) for 2 episodes of seizure-like at 1700 12/13/20. Stable. stress-induced seizure-like activity - x2 episodes prior to admission, 5-6 second duration and 20 second duration, respectively - seizure vs pseudoseizure. also consider pseudotumor cerebri - symptoms correlate w/ and seem precipitated by stressors, similar to prior episodes - hx of similar episodes since childhood - per patient, no recent medications, off of Keppra since childhood - ED provided 1.5g Keppra IV and 500 mL NSS IVF bolus. - admission neuro exam reassuring. no focal neuro deficits or altered mental status - head CT neg for bleed or midline shift - no leukocytosis and UDS negative. CMP, TSH, tropx1 neg. lower concern for substance overdose, cardiac, or infectious etiology at this time - neuro consult placed (Dr. Monterroso) - seizure precautions ordered - MRI and EEG - telemetry and cardiac monitoring - may consider funduscopic eye exam given hx of glaucoma and differential of pseudotumor cerebri - no further Keppra for now. ordered PRN lorazepam 1 mg IV PRN for further seizure activity - CBC, CMP, CK (r/o rhabdomyolysis from sz activity) in AM - no JACOBO or withdrawal protocol ordered as patient has been at rehab for 2 wks prior to admission during which she did not require any withdrawal type medications. pt denies hx of etoh abuse. FEN/GI: regular diet (MRI will be noncon). no mIVF dvt ppx: SCDs (pt is low risk) code status: full code dispo: med/surg w/ tele. [facility], waiting on seizure workup / observation (2) Acute head trauma: - 2/2 seizure-like episode above, collapsed/fell from standing position - no LOC or or concussion type symptoms from fall - no focal neuro deficits - CT head, facial bones, and c-spine were negative. details at results section - follow clinically, patient is stable (3) Methamphetamine abuse: (4) Bipolar 2 disorder: - continue home abilify 15 mg qhs - continue home buspar 15 mg PO daily - holding home latuda 20 mg PO qhs because per patient, had not been receiving while at rehab facility for past 2 weeks 2/2 supply issue and has been receiving abilify and buspar in its place (5) Anxiety and depression: - stable, continue home Prozac 20 mg PO daily (6) Glaucoma: - continue home latanoprost 0.005% 1 drop in each eye qhs - consider funduscopic exam as per above (7) Asthma, mild intermittent, well-controlled: - home combivent respimat 20mcg/100mcg 2 puffs BID PRN not on formulary - ordered albuterol inhaler 2 puffx q6h prn (8) Encounter for screening laboratory testing for COVID-19 virus in asymptomatic patient: - 12/13/20 covid RNA, NAAT neg Admission and Anticipated Discharge Date Admission Date: December 13, 2020 Results & Data Results & Data ([facility]) Vital Signs (Past 12 Hours) Vital Signs Temp Pulse Pulse Pulse Resp BP BP 12/14/20 09:25 98 H 12/14/20 07:23 37.0 C 77 16 105/66 12/14/20 03:27 36.8 C 74 20 107/67 12/14/20 00:11 85 12/13/20 22:14 36.8 C 77 16 106/70 Pulse Ox 12/14/20 09:25 12/14/20 07:23 97 12/14/20 03:27 97 12/14/20 00:11 12/13/20 22:14 96 (1) Acute head trauma Encounter type: initial encounter Qualified Code(s): S09.90XA - Unspecified injury of head, initial encounter
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
[2020-12-14] MEDS ORDERED: LATANOPROST 0.005% OP SOLN 2.5 ML BTL OPB SCH (21:00)
[2020-12-14] MEDS ORDERED: ARIPiprazole 15 MG TAB PO SCH (21:00)
--- NOTE | 2020-12-15 01:46 | Billing Data ---
Date of Service December 15, 2020 Coding Level of Care Code 98517 OBS Care - Level 3
== END 2020-12-14 18:35 | disposition alcohol treatment (31) | DRG 101 ==
LOC: ED 18:23 → 2N 21:45 → SUATTDRO 21:45 → 2N 22:05